=== PATIENT | female | born 1985 | race Native Hawaiian/Other Pacific Islander ===

== ENCOUNTER 2017-05-16 16:57 | Emergency (ER) | payer OTHER | END 2017-05-16 18:00 | disposition home or self-care (01) | LOC: ED 16:57 | DX: S99.929A Unspecified injury of unspecified foot, initial encounter (principal); W23.0XXA Caught, crushed, jammed, or pinched between moving objects, initial encounter | CPT/HCPCS: 99281 ==

== ENCOUNTER 2019-04-26 15:31 | Emergency (ER) | payer OTHER ==
[~2019-04-26] VITALS: Ht 167.6 cm; Wt 117.9 kg
[2019-04-26 16:38] LABS: PLATELET COUNT 336 K/uL (152-353)
[2019-04-26 16:43] LABS: POTASSIUM 3.6 mmol/L (3.6-5.2)
[2019-04-26 18:45] VITALS: BP 145/90; TEMP 98
== END 2019-04-26 18:46 | disposition home or self-care (01) ==
LOC: ED 15:31
PROVIDERS: Family Medicine
DX: M48.54XA Collapsed vertebra, not elsewhere classified, thoracic region, initial encounter for fracture (principal)
CPT/HCPCS: 36415; 80053; 85027; 96372; 99283; J1885

== ENCOUNTER 2020-02-22 15:49 | Emergency (ER) | payer OTHER ==
[~2020-02-22] VITALS: Ht 167.6 cm; Wt 122.5 kg
[2020-02-22 15:55] VITALS: BP 159/94; TEMP 98.6
== END 2020-02-22 16:42 | disposition home or self-care (01) ==
LOC: ED 15:49
DX: M72.2 Plantar fascial fibromatosis (principal); M76.62 Achilles tendinitis, left leg; M76.61 Achilles tendinitis, right leg; M79.671 Pain in right foot
CPT/HCPCS: 99282

== ENCOUNTER 2023-10-29 15:25 | Outpatient (CLI) | payer OTHER | END 2023-10-29 19:31 | disposition home or self-care (01) | LOC: RAD 15:25 | PROVIDERS: ATTEND Nurse Practitioner | DX: M54.2 Cervicalgia (principal); M62.838 Other muscle spasm ==